=== PATIENT | female | born 1960 | race Asian ===

== ENCOUNTER 2018-07-22 06:16 | Day surgery (SDC) | payer OTHER, SELFPAY ==
[2018-07-22 06:28] VITALS: BP 120/69; PULSE 59; RESP 16; TEMP 35.4; O2SAT 100
[2018-07-22] MEDS: Povidone-Iodine Soln. 118 ML BTL TP (06:45)
[2018-07-22] MEDS: Lactated Ringers 1,000 ML 80 ML IV (06:45)
[2018-07-22] MEDS: ceFAZolin 1 GM/50 ML BAG IVPB (07:36)
[2018-07-22] MEDS: Lidocaine 1% Pres-Free 5 ML VIAL (07:41)
[2018-07-22] MEDS: Bupivacaine 0.5% Pres-Free 30 ML VIAL (08:05)
[2018-07-22] MEDS: Dexamethasone 4 MG/ML VIAL (08:36)
--- NOTE | 2018-07-22 09:10 | W.PM.DSUDISC ---
Discharge Plan Disposition Patient Disposition: HOME Condition: Good Discharge Details Reason For Visit: bunionectomy Attending Provider: Shaun Metcalf Primary Care Provider: Aurora Mclain Home Meds and New Rx's Prescriptions: Continued cholecalciferol (vitamin D3) [Vitamin D3] 2,000 unit Capsule 2,000 unit PO DAILY RF: 0 [id number]-C-Mn [id number] mg-mg-unit Capsule 1 cap PO DAILY RF: 0 Discharge Orders Discharge Orders: Discharge Order (Routine); Ordered 07/22/18 Ordered By: Shaun Metcalf DS: Diagnosis Discharge Diagnosis (1) Hallux valgus (acquired), right foot: Status: Acute
[2018-07-22 09:35] VITALS: BP 129/67; PULSE 52; RESP 16; TEMP 35.6; O2SAT 100
--- NOTE | 2018-07-22 12:10 | ROE_ITS ---
DATE OF PROCEDURE: July 22, 2018 PREOPERATIVE DIAGNOSIS: Symptomatic right bunion deformity. POSTOPERATIVE DIAGNOSIS: Same. PROCEDURE: Scarf bunionectomy with fibular sesamoidectomy. SURGEON: Ariella BaxterPDanishaM. ANESTHESIA: IV general with local block, first ray utilizing 10 cc's 50/50 mixture 1% Lidocaine plai n, 0.5% Marcaine plain. ANESTHESIA PROVIDER: Beverley Rodriguez CRNA OPERATIVE INDICATIONS: 58-year-old female with progressive pain associated with a right bunion defor mity. She's had difficulty wearing shoes, getting through daily activities without pain in spite of shoe modification, inserts, etc. She is opting for surgical intervention. She understands risks and complications of surgery pertaining to pain, scarring, infections, stiffness of the joint, malunion, nonunion, delayed union of the osteotomy, undercorrection, overcorrection, recurrence of deformity, difficulty with the hardware potentially requiring revisional procedures. Informed consent has been obtained. No promises made to final outcome of surgery. REPORT OF OPERATION: Jesus was brought to the operative suite and placed in the supine position wher e the right foot was prepped and draped in the usual sterile podiatric fashion. Anesthesia being obt ained, the right foot was exsanguinated; a well-padded ankle tourniquet inflated 250 mmHg. Attention was directed to the first MPJ where a 6 cm incision was made medial and parallel to the EHL tendon. The incision was deepened in controlled depth fashion; hemostasis acquired with electrocaut patel as needed. Dissection was carried down to the joint capsule. Significant contracture of the lat eral capsule was noted. A lateral capsulotomy was performed. The adductor tendon was released. The fibular sesamoid was sitting on the lateral side of the first metatarsal head; it was dissected free of the flexor tendon and removed. At this time attention was directed to the medial aspect of the j oint where an inverted-L capsulotomy was performed. The joint capsule was incised, opened and the fi rst metatarsal head delivered into the wound. The articular cartilage looked fairly well-preserved; there was some mild to moderate thinning of the cartilage, but no raw bone identified. There was a l arge medial hyperostosis seen. The medial hyperostosis on the first metatarsal head was resected wit h power instrumentation. At this time a Scarf osteotomy was planned; it ran from the head of the fir st metatarsal to about midshaft region of the first metatarsal. The dorsal and plantar cuts were mad e; the head translocated nicely laterally, impacted and was fixated with a 2.7 screws x2. The medial shelf was resected; all rough and bony edges rasped smooth. Copious irrigation was performed. Good alignment was appreciated. The joint capsule was closed with simple interrupted suture #3-0 Vicryl, performing a medial capsulorrhaphy to tighten the joint. At this time it was noted that the extenso r tendons were tight, pulling the hallux into valgus. A flexor hallucis brevis tenotomy was performe d and a Z lengthening tenotomy was performed of the extensor hallucis longus tendon end-to-end with # 3-0 Vicryl. The soft tissues were closed over the tendon with #4-0 Vicryl. The subcutaneous layer w as repaired with simple interrupted suture #4-0 Vicryl and a running subcuticular stitch of #4-0 [place] cryl was then performed. The skin was then further reinforced with Mastisol, half-inch Steri-Strips. Four milligrams of dexamethasone phosphate was infused deeply into the wound. Xeroform, gauze fluf f compression dressings were applied. The tourniquet was released at sixty-seven minutes with vascul arity returning immediately to all toes. A fiberglass posterior splint was then applied. Jesus left the OR with vital signs stable, vascular status intact. Sharp and sponge counts were correct. She will remain non-weightbearing with axillary crutches right lower extremity and will follow-up with me in the office next week. cc: Aurora Mclain N.P.
== END 2018-07-22 10:55 | disposition home or self-care (01) ==
PROVIDERS: PCP Nurse Practitioner; Visit Provider Podiatrist
PROC: (CPT 28292; principal; 2018-07-22 07:30)
DX: M20.11 Hallux valgus (acquired), right foot (principal); M21.611 Bunion of right foot
CPT/HCPCS: 28296; E0114; J0690; J1100; J1885; J2405

== ENCOUNTER 2019-06-06 00:28 | Outpatient (CLI) | payer OTHER, SELFPAY ==
--- NOTE | 2019-06-06 13:15 | DI.US_ITS ---
EXAM: US LOWER EXTREMITY VENOUS RT CLINICAL HISTORY: SWELLING, DISCOMFORT RLE SINCE JANUARY,WAS POPLITEAL,NOW CALF, H/O GASTROCNEMIUS TEAR, M79.661, M79.89. TECHNIQUE: Right lower extremity venous ultrasound performed using grayscale, color-flow, and spectr al Doppler analysis. COMPARISON: No exams were available for comparison FINDINGS: The right common femoral, femoral and popliteal veins demonstrate normal compressibility, augmentatio n, and color Doppler. The posterior tibial veins are patent.Saphenofemoral junction is unremarkable. There is a 4.7 x 0.3 x 4.2 cm fluid collection in the posterior superior calf. This may represent a ruptured Caro's cyst. IMPRESSION: No evidence of a deep venous thrombus or superficial thrombophlebitis. DATA REPOSITORY:
== END 2019-06-06 00:48 ==
PROVIDERS: PCP Nurse Practitioner; Visit Provider Nurse Practitioner
DX: M79.661 Pain in right lower leg (principal); R22.41 Localized swelling, mass and lump, right lower limb; M79.89 Other specified soft tissue disorders
CPT/HCPCS: 93971